=== PATIENT | male | born 1990 | race African-American/Black ===

== ENCOUNTER 2017-06-30 00:05 | Emergency (ER) | payer SELFPAY ==
--- NOTE | 2017-06-30 00:37 | PDOC ---
History of Present Illness - General History Source: Patient Exam Limitations: No Limitations - History of Present Illness Initial Comments: 06/30/17 01:37 The patient is a 27-year-old male with a significant past medical history of peptic ulcers, and presents to the emergency department with abdominal pain and nausea since 9pm last night. He reports he did not have anything to eat all day , and the pain started after taking 2 shots of liquor and eating a pomegranate. He states the pain is located in the left lower quadrant and non-radiating. He states his stomach feels funny and he forced himself to vomit. The patient denies chest pain, shortness of breath, headache and dizziness. The patient denies fever, chills, diarrhea and constipation. The patient denies dysuria, frequency, urgency and hematuria. Allergies: NKDA Past Surgical History: None reported Social History: Current smoker, occasional drinking and marijuana use <Marla Sommers - Last Filed: 06/30/17 01:37> <Elzbieta Caamcho - Last Filed: 07/01/17 01:16> - General Stated Complaint: ABD PAIN Time Seen by Provider: 06/30/17 00:37 Past History <Marla Sommers - Last Filed: 06/30/17 01:37> <Elzbieta Camacho - Last Filed: 07/01/17 01:16> - Past Medical History Allergies/Adverse Reactions: Allergies Allergy/AdvReac Type Severity Reaction Status Date / Time No Known Allergies Allergy Verified 06/30/17 00:41 Home Medications: Ambulatory Orders NK [No Known Home Medication] 06/30/17 Review of Systems - Review of Systems Able to Perform ROS?: Yes Comments:: 06/30/17 01:37 GENERAL/CONSTITUTIONAL: No fever or chills. No weakness. HEAD, EYES, EARS, NOSE AND THROAT: No change in vision. No ear pain or discharge. No sore throat. CARDIOVASCULAR: No chest pain or shortness of breath. RESPIRATORY: No cough, wheezing, or hemoptysis. GASTROINTESTINAL: (+) Abdominal pain. (+) Nausea, (+) vomiting. No diarrhea or constipation. GENITOURINARY: No dysuria, frequency, or change in urination. MUSCULOSKELETAL: No joint or muscle swelling or pain. No neck or back pain. SKIN: No rash NEUROLOGIC: No headache, vertigo, loss of consciousness, or change in strength/ sensation. ENDOCRINE: No increased thirst. No abnormal weight change. HEMATOLOGIC/LYMPHATIC: No anemia, easy bleeding, or history of blood clots. ALLERGIC/IMMUNOLOGIC: No hives or skin allergy. <MatthieuAllia - Last Filed: 06/30/17 01:37> *Physical Exam - Vital Signs Last Vital Signs Temp Pulse Resp BP Pulse Ox 98.1 F 75 18 104/86 100 06/30/17 00:41 06/30/17 00:41 06/30/17 00:41 06/30/17 00:41 06/30/17 00:41 - Physical Exam Comments: 06/30/17 01:38 GENERAL: Awake, alert, and fully oriented, in no acute distress HEAD: No signs of trauma EYES: PERRLA, EOMI, sclera anicteric, conjunctiva clear ENT: Auricles normal inspection, hearing grossly normal, nares patent, oropharynx clear without exudates. Moist mucosa NECK: Normal ROM, supple, no lymphadenopathy, JVD, or masses LUNGS: Breath sounds equal, clear to auscultation bilaterally. No wheezes, and no crackles HEART: Regular rate and rhythm, normal S1 and S2, no murmurs, rubs or gallops ABDOMEN: Soft, no RLQ ttp, (+) LLQ ttp, (+) high-pitched sounds at epigastrium, (+) decreased sounds at LLQ. No guarding, no rebound. No masses EXTREMITIES: Normal range of motion, no edema. No clubbing or cyanosis. No cords, erythema, or tenderness NEUROLOGICAL: Cranial nerves II through XII grossly intact. Normal speech, normal gait SKIN: Warm, Dry, normal turgor, no rashes or lesions noted. <Marla Sommers - Last Filed: 06/30/17 01:37> ED Treatment Course - LABORATORY CBC & Chemistry Diagram: 06/30/17 00:55 06/30/17 00:55 - ADDITIONAL ORDERS Additional order review: 06/30/17 00:55 RBC 4.96 MCV 92.7 MCHC 33.9 RDW 13.9 MPV 8.5 Neutrophils % 47.7 Lymphocytes % 39.1 Monocytes % 11.0 H Eosinophils % 1.3 Basophils % 0.9 - Medications Given in the ED: ED Medications Discontinued Medications Generic Name Dose Route Start Last Admin Trade Name Reynaldo PRN Reason Stop Dose Admin Sodium Chloride 1,000 ml 06/30/17 01:13 06/30/17 01:21 Normal Saline - IV 06/30/17 01:14 1,000 ml ONCE ONE Administration <Marla Sommers - Last Filed: 06/30/17 01:37> - LABORATORY CBC & Chemistry Diagram: 06/30/17 00:55 06/30/17 00:55 <Elzbieta Camacho - Last Filed: 07/01/17 01:16> Medical Decision Making - Medical Decision Making 07/01/17 01:15 Pt comes with gas pain. Abd XR normal; no obstruction. Pt feels better after treatment. <Elzbieta Camacho - Last Filed: 07/01/17 01:16> *DC/Admit/Observation/Transfer - Attestations Scribe Attestion: 06/30/17 01:38 Documentation prepared by Marla Sommers, acting as medical physiologist for Elzbieta Camacho MD/DO. <Marla Sommers - Last Filed: 06/30/17 01:37> - Discharge Dispostion Admit: No <Elzbieta Camacho - Last Filed: 07/01/17 01:16> Diagnosis at time of Disposition: Gas pain - Discharge Dispostion Disposition: HOME Condition at time of disposition: Improved - Patient Instructions Printed Discharge Instructions: How to Avoid Gas, DI for Dyspepsia
[2017-06-30 00:44] VITALS: BP 104/86; PULSE 75; TEMP 98.1; BMI 27.8
[2017-06-30] MEDS ORDERED: FAMOTIDINE 20 MG/50 ML IVPB 20 MG/50 ML MG IVPB ONE (01:13)
[2017-06-30] MEDS ORDERED: SODIUM CHLORIDE 0.9% 500 ML INFUS.BAG IV ONE (01:13)
[2017-06-30 01:22] LABS: BASOPHIL 0.9 % (0-2.0); EOSINOPHIL 1.3 % (0-4.5); MCH 31.4 pg (25.7-33.7); MCHC 33.9 g/dl (32.0-35.9); MEAN CELL VOLUME 92.7 fl (80-96); MEAN PLT VOLUME 8.5 fl (7.5-11.1); NEUTROPHILS 47.7 % (42.8-82.8); PLATELET COUNT 241 K/MM3 (134-434); RDW 13.9 % (11.9-15.9); WHITE BLOOD COUNT 8.7 K/mm3 (4.0-10.0)
== END 2017-06-30 03:52 | disposition home or self-care (01) ==
LOC: JER 00:05
PROC: 3E033GC Introduction of Other Therapeutic Substance into Peripheral Vein, Percutaneous Approach (ICD-10-PCS; principal; 2017-06-30)
DX: R14.1 Gas pain (principal); Z87.11 Personal history of peptic ulcer disease
CPT/HCPCS: 36415; 74020-TC; 80307; 85025; 99282-25

== ENCOUNTER 2024-03-25 11:42 | Emergency (ER) | payer OTHER ==
[2024-03-25 12:13] VITALS: BP 122/80; PULSE 84; RESP 18; TEMP 98.2; BMI 31.5
[2024-03-25] MEDS ORDERED: FLUORESCEIN NA 1 EA STRIP ONE (12:38)
[2024-03-25] MEDS: FLUORESCEIN NA 1 EA STRIP OD ONE (12:38)
[2024-03-25 14:50] LABS: HIV INTERPRETATION NEGATIVE (NEGATIVE)
== END 2024-03-25 13:31 | disposition home or self-care (01) ==
LOC: JERFT 11:42
DX: S05.01XA Injury of conjunctiva and corneal abrasion without foreign body, right eye, initial encounter (principal); X50.1XXA Overexertion from prolonged static or awkward postures, initial encounter
CPT/HCPCS: 36415; 86803; 87389; 99283-25